=== PATIENT | male | born 1935 | race Caucasian/White ===

== ENCOUNTER 2017-04-26 06:34 | Inpatient (IN) | payer MEDICARE, OTHER ==
[2017-04-25 15:15] LABS: BASOPHILS % (AUTO) 0.6 % (0-1); EOSINOPHILS # (AUTO) 0.3 X10'3 (0-0.9); EOSINOPHILS % (AUTO) 4.1 % (0-6); LYMPHOCYTES # (AUTO) 2.6 X10'3 (1.1-4.8); LYMPHOCYTES % (AUTO) 30.9 % (21-51); MEAN CORPUSCULAR HEMOGLOBIN 31.7 PG (27.0-31.0); MEAN CORPUSCULAR HGB CONC 34.7 % (33.0-36.5); MEAN CORPUSCULAR VOLUME 91.3 FL (78-98); MEAN PLATELET VOLUME 7.9 FL (7.4-10.4); MONOCYTES # (AUTO) 0.9 X10'3 (0-0.9); MONOCYTES % (AUTO) 10.5 % (2-12); NEUTROPHILS # (AUTO) 4.5 X10'3 (1.8-7.7); NEUTROPHILS % (AUTO) 53.9 % (42-75); PRE OP HEMOGLOBIN 13.6 g/dL (14.0-17.9); PRE OP PLATELET COUNT 232 X10'3 (140-440); RED BLOOD COUNT 4.27 X10'6 (4.70-6.10); RED CELL DISTRIBUTION WIDTH 13.1 % (11.5-14.5)
[2017-04-25 15:23] LABS: PRE OP PROTIME 10.7 SECONDS (9.0-12.0)
[2017-04-25 15:38] LABS: ALBUMIN 3.9 G/DL (3.4-5.0); ALBUMIN/GLOBULIN RATIO 1.1 (1.1-1.5); ALKALINE PHOSPHATASE 75 IU/L (46-116); BLOOD UREA NITROGEN 21 MG/DL (7-18); BUN/CREATININE RATIO 18.9 (5.4-32.0); CALCIUM 9.1 MG/DL (8.5-10.1); CHLORIDE 108 MMOL/L (99-107); CREATININE 1.11 MG/DL (0.60-1.10); PRE OP ALT 39 U/L (30-65); PRE OP ANION GAP 10 (8-16); PRE OP AST 21 U/L (10-37); PRE OP BILIRUB, TOTAL 0.4 MG/DL (0.0-1.0); PRE OP GLUCOSE 99 MG/DL (70-104); PRE OP POTASSIUM 4.2 MMOL/L (3.4-5.1); PRE OP SODIUM 146 MMOL/L (135-145); TOTAL CARBON DIOXIDE 28.4 MMOL/L (24-32); TOTAL PROTEIN 7.3 G/DL (6.4-8.2); eGFR 64 ML/MIN
[2017-04-26] VITALS (17 sets, daily range): BP systolic 113–169; BP diastolic 63–104
[~2017-04-26] VITALS: Ht 170.2 cm; Wt 73.1 kg
[~2017-04-26 06:34] MED LIST: NO HOME MEDS; VANCOMYCIN INJ 1000 MG in NORMAL SALINE 250ml IV.SOLN IV ONE; cefazolin/dext.iso 2gm/50ml 50 ML IV ONE; famotidine 20mg tablet PO ONE; ringers solution, lacted 1,000 ML IV SCH; tranexamic acid inj. 1,000 MG in normal saline 100ml IV soln 90 ML IV ONE
[2017-04-26] MEDS ORDERED: LIDOcaine 1% (10mg/ml) 2ml vial ONE (07:02)
[2017-04-26] MEDS ORDERED: vancomycin 1,000mg inj ONE (07:15)
[2017-04-26] MEDS ORDERED: ROPIVAcaine 0.5% (5mg/ml) 30ml vial ONE ×2 (07:15→10:08)
[2017-04-26] MEDS ORDERED: ketorolac trometh. 30mg/ml inj. ONE (07:15)
[2017-04-26] MEDS ORDERED: tranexamic acid inj. 1,000 MG in normal saline 100ml IV soln 90 ML IV ONE (09:00)
[2017-04-26] MEDS ORDERED: tranexamic acid inj. 730 MG in normal saline 100ml IV soln 92.7 ML IV ONE ×4 (10:00)
[2017-04-26] MEDS ORDERED: cloNIDine hcl/PF 100mcg/ml inj ONE (10:08)
[2017-04-26] MEDS ORDERED: MIDAZolam 1mg/ml 10ml vial ONE (10:10)
[2017-04-26] MEDS ORDERED: MORPHINE SULFATE/PF 0.5 MG/ML 10ML AMPUL ONE (10:10)
[2017-04-26] MEDS ORDERED: fentaNYL/PF 50MCG/1 ML 2ML syringe ONE (10:11)
[2017-04-26] MEDS ORDERED: ePHEDrine 50MG/ML INJ. ONE (10:38)
[2017-04-26] MEDS ORDERED: ringers solution, lacted 1,000 ML IV SCH (11:01)
[2017-04-26] MEDS ORDERED: diphenhydrAMINE 50 mg/ml inj IV PRN (11:05)
[2017-04-26] MEDS ORDERED: hydrALAZINE 20mg/ml inj. IV PRN (11:05)
[2017-04-26] MEDS ORDERED: fentaNYL/PF 50MCG/1 ML 2ML syringe IV PRN ×2 (11:05)
[2017-04-26] MEDS ORDERED: ondansetron/PF 4mg/2ml inj IV PRN ×3 (11:05→12:50)
[2017-04-26] MEDS ORDERED: enalaprilat dihydrate 2.5mg/2ml vial IV PRN (11:05)
[2017-04-26] MEDS ORDERED: magnesium hydroxide 30ml (MOM) UD suspension PO PRN (12:50)
[2017-04-26] MEDS ORDERED: bisacodyl 10mg suppository rectal RC PRN (12:50)
[2017-04-26] MEDS ORDERED: acetaminophen 325mg tablet PO PRN (12:50)
[2017-04-26] MEDS ORDERED: diphenhydrAMINE 25mg capsule PO PRN ×2 (12:50)
[2017-04-26] MEDS ORDERED: HYDROmorphone 1 mg/ml syringe IV PRN ×2 (12:50)
[2017-04-26] MEDS: acetaminophen 325mg tablet PO SCH ×2 (14:23→19:38)
[2017-04-26] MEDS: gabapentin 300mg capsule PO SCH ×2 (14:23→21:34)
[2017-04-26] MEDS: ketorolac tromethamine 15mg/ml inj. IV SCH ×2 (14:26→19:37)
[2017-04-26] MEDS: potassium cl 20mEq in 1/2 NS 1,000 ML IV SCH ×2 (14:36→23:45)
[2017-04-26] MEDS ORDERED: tranexamic acid inj. 730 MG in normal saline 100ml IV soln 100 ML IV ONE (15:50)
[2017-04-26] MEDS: cefazolin 1gm/NS 100mL 100 ML IV SCH ×2 (16:21→23:41)
[2017-04-26] MEDS: celeCOXIB 100mg capsule PO SCH (19:38)
[2017-04-26] MEDS ORDERED: vancomycin/NS 1 GM ADD-VANTAGE 250 ML IV SCH (20:00)
[2017-04-26] MEDS: sennosides 8.6mg tablet PO SCH (21:34)
[2017-04-27 02:01] VITALS: BP 111/64
[2017-04-27] MEDS: ketorolac tromethamine 15mg/ml inj. IV SCH (02:06)
[2017-04-27] MEDS: acetaminophen 325mg tablet PO SCH ×4 (02:06→19:59)
[2017-04-27] MEDS: oxyCODONE IR 5mg (immed. release) tablet PO PRN ×2 (05:24→23:44)
[2017-04-27 06:00] VITALS: BP 111/62
[2017-04-27] MEDS: celeCOXIB 100mg capsule PO SCH ×2 (07:39→19:59)
[2017-04-27] MEDS: potassium cl 20mEq in 1/2 NS 1,000 ML IV SCH ×3 (07:39→19:55)
[2017-04-27] MEDS: gabapentin 300mg capsule PO SCH ×3 (07:39→19:59)
[2017-04-27] MEDS: aspirin 325mg tablet PO SCH (07:40)
[2017-04-27 07:47] LABS: BASOPHILS % (AUTO) 0.2 % (0-1); EOSINOPHILS # (AUTO) 0.2 X10'3 (0-0.9); EOSINOPHILS % (AUTO) 1.7 % (0-6); HEMATOCRIT 29.1 % (42.0-52.0); HEMOGLOBIN 9.7 g/dl (14.0-17.9); LYMPHOCYTES % (AUTO) 17.5 % (21-51); MEAN CORPUSCULAR HEMOGLOBIN 31.2 PG (27.0-31.0); MEAN CORPUSCULAR HGB CONC 33.4 % (33.0-36.5); MEAN CORPUSCULAR VOLUME 93.4 FL (78-98); MEAN PLATELET VOLUME 7.7 FL (7.4-10.4); MONOCYTES # (AUTO) 1.4 X10'3 (0-0.9); MONOCYTES % (AUTO) 11.9 % (2-12); NEUTROPHILS # (AUTO) 7.9 X10'3 (1.8-7.7); NEUTROPHILS % (AUTO) 68.7 % (42-75); PLATELET COUNT 184 X10'3 (140-440); RED BLOOD COUNT 3.12 X10'6 (4.70-6.10); RED CELL DISTRIBUTION WIDTH 14.4 % (11.5-14.5); WHITE BLOOD COUNT 11.5 X10'3 (4.5-11.0)
[2017-04-27 08:08] LABS: ANION GAP 8 (8-16); CHLORIDE 107 MMOL/L (99-107); POTASSIUM 4.4 MMOL/L (3.5-5.1); SODIUM 141 MMOL/L (135-145); TOTAL CARBON DIOXIDE 25.6 MMOL/L (24-32)
[2017-04-27 10:30] VITALS: BP 151/70
[2017-04-27 18:02] VITALS: BP 133/72
[2017-04-27] MEDS: pantoprazole 40mg Tablet.DR PO SCH (20:01)
[2017-04-27] MEDS: sennosides 8.6mg tablet PO SCH (21:00)
[2017-04-27 22:00] VITALS: BP 123/62
[2017-04-28] MEDS: acetaminophen 325mg tablet PO SCH ×2 (02:00→09:19)
[2017-04-28] MEDS: potassium cl 20mEq in 1/2 NS 1,000 ML IV SCH (04:46)
[2017-04-28 05:00] VITALS: BP 129/84
[2017-04-28] MEDS: oxyCODONE IR 5mg (immed. release) tablet PO PRN ×3 (05:45→13:29)
[2017-04-28 06:34] LABS: BASOPHILS % (AUTO) 0.2 % (0-1); EOSINOPHILS # (AUTO) 0.4 X10'3 (0-0.9); EOSINOPHILS % (AUTO) 4.1 % (0-6); HEMATOCRIT 27.1 % (42.0-52.0); HEMOGLOBIN 9.1 g/dl (14.0-17.9); LYMPHOCYTES # (AUTO) 1.6 X10'3 (1.1-4.8); MEAN CORPUSCULAR HEMOGLOBIN 31.3 PG (27.0-31.0); MEAN CORPUSCULAR HGB CONC 33.7 % (33.0-36.5); MEAN CORPUSCULAR VOLUME 92.8 FL (78-98); MEAN PLATELET VOLUME 7.6 FL (7.4-10.4); MONOCYTES # (AUTO) 1.3 X10'3 (0-0.9); MONOCYTES % (AUTO) 12.7 % (2-12); NEUTROPHILS # (AUTO) 7.1 X10'3 (1.8-7.7); PLATELET COUNT 150 X10'3 (140-440); RED BLOOD COUNT 2.92 X10'6 (4.70-6.10); RED CELL DISTRIBUTION WIDTH 14.1 % (11.5-14.5); WHITE BLOOD COUNT 10.5 X10'3 (4.5-11.0)
[2017-04-28] MEDS: celeCOXIB 100mg capsule PO SCH (09:18)
[2017-04-28] MEDS: pantoprazole 40mg Tablet.DR PO SCH (09:18)
[2017-04-28] MEDS: gabapentin 300mg capsule PO SCH ×2 (09:18→13:28)
[2017-04-28] MEDS: aspirin 325mg tablet PO SCH (09:19)
[2017-04-28 10:00] VITALS: BP 116/66
[2017-04-28] MEDS ORDERED: ASPI-1 PO (10:22)
[2017-04-28] MEDS ORDERED: WALKERFR (10:23)
== END 2017-04-28 15:10 | disposition home health service (06) | DRG 470 ==
LOC: PAS IN 06:34 → EDSTATUS 09:45 → ORTHO 4S 13:45 → EDSTATUS 14:00
PROVIDERS: ADMIT Orthopaedic Surgery; ATTEND Orthopaedic Surgery
PROC: 3E0T3BZ Introduction of Anesthetic Agent into Peripheral Nerves and Plexi, Percutaneous Approach (ICD-10-PCS; 2017-04-26)
PROC: 8E0YXBZ Computer Assisted Procedure of Lower Extremity (ICD-10-PCS; 2017-04-26)
PROC: 8E0YXCZ Robotic Assisted Procedure of Lower Extremity (ICD-10-PCS; 2017-04-26)
PROC: 0SRC0J9 Replacement of Right Knee Joint with Synthetic Substitute, Cemented, Open Approach (ICD-10-PCS; principal; 2017-04-26 10:05)
DX: M17.0 Bilateral primary osteoarthritis of knee (principal); D62 Acute posthemorrhagic anemia; F17.200 Nicotine dependence, unspecified, uncomplicated; Z72.89 Other problems related to lifestyle; Z79.82 Long term (current) use of aspirin; Z84.89 Family history of other specified conditions
CPT/HCPCS: 36415; 71046; 80051; 80053; 85025; 85610; 85730; 87070; 97110; 97116; 97161; A6449; A6455; A7000; C1713; C1758; C1776; J0690; J0735; J1170; J1885; J2250; J2274; J2405; J2795; J3010; J3370; J3490; J7120

== ENCOUNTER 2017-05-06 14:03 | Inpatient (IN) | payer MEDICARE, OTHER ==
[2017-05-06] VITALS (7 sets, daily range): BP systolic 132–166; BP diastolic 71–89
[~2017-05-06] VITALS: Ht 167.6 cm; Wt 75.0 kg
[~2017-05-06 14:03] MED LIST changes: +ASPI-1 PO; -VANCOMYCIN INJ 1000 MG in NORMAL SALINE 250ml IV.SOLN IV ONE; +WALKERFR; -cefazolin/dext.iso 2gm/50ml 50 ML IV ONE; -famotidine 20mg tablet PO ONE; -ringers solution, lacted 1,000 ML IV SCH; -tranexamic acid inj. 1,000 MG in normal saline 100ml IV soln 90 ML IV ONE
[2017-05-06] MEDS ORDERED: NAPR250T4 PO (15:24)
[2017-05-06 15:40] LABS: BASOPHILS # (AUTO) 0.1 X10'3 (0-0.2); BASOPHILS % (AUTO) 0.6 % (0-1); EOSINOPHILS # (AUTO) 0.1 X10'3 (0-0.9); EOSINOPHILS % (AUTO) 0.5 % (0-6); HEMATOCRIT 24.6 % (42.0-52.0); HEMOGLOBIN 8.2 g/dl (14.0-17.9); LYMPHOCYTES # (AUTO) 1.3 X10'3 (1.1-4.8); MEAN CORPUSCULAR HEMOGLOBIN 31.6 PG (27.0-31.0); MEAN CORPUSCULAR HGB CONC 33.3 % (33.0-36.5); MEAN PLATELET VOLUME 7.2 FL (7.4-10.4); MONOCYTES % (AUTO) 7.1 % (2-12); NEUTROPHILS # (AUTO) 12.1 X10'3 (1.8-7.7); NEUTROPHILS % (AUTO) 82.8 % (42-75); PLATELET COUNT 453 X10'3 (140-440); RED BLOOD COUNT 2.59 X10'6 (4.70-6.10); RED CELL DISTRIBUTION WIDTH 15.4 % (11.5-14.5); WHITE BLOOD COUNT 14.6 X10'3 (4.5-11.0)
[2017-05-06 15:50] LABS: ANISOCYTOSIS 1+; PLATELET ESTIMATE INCREASED; POLYCHROMASIA 1+; TOTAL CELLS COUNTED 100
[2017-05-06 15:59] LABS: ALANINE AMINOTRANSFERASE 44 U/L (12-78); ALBUMIN 2.9 G/DL (3.4-5.0); ALBUMIN/GLOBULIN RATIO 0.8 (1.1-1.5); ALKALINE PHOSPHATASE 83 IU/L (46-116); ANION GAP 14 (8-16); ASPARTATE AMINO TRANSFERASE 30 U/L (10-37); BILIRUBIN,TOTAL 0.6 MG/DL (0.1-1.0); BLOOD UREA NITROGEN 49 MG/DL (7-18); BUN/CREATININE RATIO 40.8 (5.4-32.0); CALCIUM 8.5 MG/DL (8.5-10.1); CHLORIDE 107 MMOL/L (99-107); GLUCOSE 123 MG/DL (70-104); POTASSIUM 3.7 MMOL/L (3.5-5.1); SODIUM 146 MMOL/L (135-145); TOTAL CARBON DIOXIDE 25.4 MMOL/L (24-32); TOTAL PROTEIN 6.6 G/DL (6.4-8.2); eGFR 58 ML/MIN
[2017-05-06 16:44] LABS: OCCULT BLOOD STOOL NEGATIVE (Neg)
[2017-05-06] MEDS ORDERED: levoFLOXACIN-Levaquin 500mg/D5 100 ML IV ONE (17:00)
[2017-05-06] MEDS ORDERED: furosemide 40mg/4ml inj IV ONE (17:00)
[2017-05-06] MEDS ORDERED: mag hydrox/Alum hydrox/simeth 30ml oral suspension PO PRN (17:25)
[2017-05-06] MEDS ORDERED: diphenhydrAMINE 50 mg/ml inj IV PRN (17:25)
[2017-05-06] MEDS ORDERED: ondansetron/PF 4mg/2ml inj IV PRN (17:25)
[2017-05-06] MEDS ORDERED: HYDROcodone/acetaminophen 10/325mg tab PO PRN (17:25)
[2017-05-06] MEDS ORDERED: acetaminophen 325mg tablet PO PRN (17:25)
[2017-05-06] MEDS ORDERED: diphenhydrAMINE 25mg capsule PO PRN (17:25)
[2017-05-06] MEDS ORDERED: magnesium hydroxide 30ml (MOM) UD suspension PO PRN (17:25)
[2017-05-06] MEDS: pantoprazole 40 MG vial IV SCH (20:24)
[2017-05-06] MEDS ORDERED: temazepam 15mg capsule PO PRN (21:00)
[2017-05-06] MEDS ORDERED: iohexol 350MG/ML 100ml bottle IV ONE (21:30)
[2017-05-07] VITALS (8 sets, daily range): BP systolic 122–185; BP diastolic 69–99
[2017-05-07 03:00] LABS: BASOPHILS % (AUTO) 0.4 % (0-1); EOSINOPHILS # (AUTO) 0.2 X10'3 (0-0.9); EOSINOPHILS % (AUTO) 1.9 % (0-6); HEMATOCRIT 30.4 % (42.0-52.0); HEMOGLOBIN 10.2 g/dl (14.0-17.9); LYMPHOCYTES # (AUTO) 1.7 X10'3 (1.1-4.8); LYMPHOCYTES % (AUTO) 13.4 % (21-51); MEAN CORPUSCULAR HEMOGLOBIN 31.1 PG (27.0-31.0); MEAN CORPUSCULAR HGB CONC 33.6 % (33.0-36.5); MEAN CORPUSCULAR VOLUME 92.3 FL (78-98); MEAN PLATELET VOLUME 7.1 FL (7.4-10.4); MONOCYTES % (AUTO) 7.6 % (2-12); NEUTROPHILS # (AUTO) 9.6 X10'3 (1.8-7.7); NEUTROPHILS % (AUTO) 76.7 % (42-75); PLATELET COUNT 398 X10'3 (140-440); WHITE BLOOD COUNT 12.5 X10'3 (4.5-11.0)
[2017-05-07] MEDS ORDERED: furosemide 20 MG/2 ML vial IV ONE (03:05)
[2017-05-07 03:23] LABS: ALBUMIN 2.7 G/DL (3.4-5.0); ANION GAP 13 (8-16); BLOOD UREA NITROGEN 38 MG/DL (7-18); BUN/CREATININE RATIO 34.5 (5.4-32.0); CALCIUM 8.2 MG/DL (8.5-10.1); CHLORIDE 108 MMOL/L (99-107); CHOL/HDL RATIO 3.6 (0.00-4.99); CHOLESTEROL 118 MG/DL (0-200); GLUCOSE 99 MG/DL (70-104); HDL CHOLESTEROL 33 MG/DL (35-60); LDL CHOLESTEROL 75 MG/DL (50-100); POTASSIUM 3.5 MMOL/L (3.5-5.1); SODIUM 147 MMOL/L (135-145); TOTAL CARBON DIOXIDE 25.6 MMOL/L (24-32); TRIGLYCERIDES 83 MG/DL (20-135); eGFR 64 ML/MIN
[2017-05-07] MEDS: lisinopril 5mg tablet PO SCH (07:57)
[2017-05-07] MEDS: furosemide 40mg/4ml inj IV SCH ×2 (07:58→19:16)
[2017-05-07] MEDS: aspirin 81mg tablet.DR PO SCH (07:58)
[2017-05-07] MEDS: pantoprazole 40 MG vial IV SCH ×2 (07:58→19:17)
[2017-05-07] MEDS ORDERED: potassium Cl oral solution 20 MEQ/15 ML PO ONE (17:15)
[2017-05-08 02:00] VITALS: BP 128/77
[2017-05-08 05:44] LABS: BASOPHILS % (AUTO) 0.3 % (0-1); EOSINOPHILS # (AUTO) 0.3 X10'3 (0-0.9); EOSINOPHILS % (AUTO) 2.6 % (0-6); HEMATOCRIT 35.5 % (42.0-52.0); HEMOGLOBIN 11.6 g/dl (14.0-17.9); LYMPHOCYTES # (AUTO) 1.5 X10'3 (1.1-4.8); LYMPHOCYTES % (AUTO) 12.6 % (21-51); MEAN CORPUSCULAR HEMOGLOBIN 30.9 PG (27.0-31.0); MEAN CORPUSCULAR HGB CONC 32.9 % (33.0-36.5); MEAN CORPUSCULAR VOLUME 93.9 FL (78-98); MEAN PLATELET VOLUME 7.3 FL (7.4-10.4); MONOCYTES # (AUTO) 1.1 X10'3 (0-0.9); MONOCYTES % (AUTO) 9.2 % (2-12); NEUTROPHILS % (AUTO) 75.3 % (42-75); PLATELET COUNT 447 X10'3 (140-440); RED BLOOD COUNT 3.78 X10'6 (4.70-6.10); RED CELL DISTRIBUTION WIDTH 16.3 % (11.5-14.5)
[2017-05-08 05:54] LABS: ALBUMIN 2.6 G/DL (3.4-5.0); ANION GAP 8 (8-16); BLOOD UREA NITROGEN 27 MG/DL (7-18); BUN/CREATININE RATIO 22.5 (5.4-32.0); CALCIUM 8.5 MG/DL (8.5-10.1); CHLORIDE 105 MMOL/L (99-107); GLUCOSE 106 MG/DL (70-104); POTASSIUM 3.6 MMOL/L (3.5-5.1); SODIUM 146 MMOL/L (135-145); TOTAL CARBON DIOXIDE 33.1 MMOL/L (24-32); eGFR 58 ML/MIN
[2017-05-08 06:00] VITALS: BP 137/81
[2017-05-08] MEDS: lisinopril 5mg tablet PO SCH (09:06)
[2017-05-08] MEDS: furosemide 40mg/4ml inj IV SCH ×2 (09:06→19:12)
[2017-05-08] MEDS: aspirin 81mg tablet.DR PO SCH (09:06)
[2017-05-08] MEDS: pantoprazole 40 MG vial IV SCH ×2 (09:06→19:12)
[2017-05-08] MEDS ORDERED: metoprolol tartrate 12.5mg (1/2 tablet) PO SCH (10:00)
[2017-05-08 11:00] VITALS: BP 124/70
[2017-05-08] MEDS: apixaban 5mg tablet PO SCH ×2 (12:58→19:12)
[2017-05-08 15:00] VITALS: BP_SYST 86; BP_SYST 89; BP_DIAS 46; BP_DIAS 50
[2017-05-08 19:00] VITALS: BP 111/64
[2017-05-08] MEDS: sotalol 80mg tablet PO SCH (19:12)
[2017-05-08 23:00] VITALS: BP 102/64
[2017-05-09 03:00] VITALS: BP 104/65
[2017-05-09 05:27] LABS: BASOPHILS % (AUTO) 0.3 % (0-1); EOSINOPHILS # (AUTO) 0.4 X10'3 (0-0.9); EOSINOPHILS % (AUTO) 3.2 % (0-6); HEMATOCRIT 41.1 % (42.0-52.0); HEMOGLOBIN 13.6 g/dl (14.0-17.9); LYMPHOCYTES # (AUTO) 1.8 X10'3 (1.1-4.8); LYMPHOCYTES % (AUTO) 14.3 % (21-51); MEAN CORPUSCULAR VOLUME 93.9 FL (78-98); MEAN PLATELET VOLUME 7.3 FL (7.4-10.4); MONOCYTES # (AUTO) 0.9 X10'3 (0-0.9); NEUTROPHILS # (AUTO) 9.7 X10'3 (1.8-7.7); NEUTROPHILS % (AUTO) 75.2 % (42-75); PLATELET COUNT 514 X10'3 (140-440); RED BLOOD COUNT 4.38 X10'6 (4.70-6.10); RED CELL DISTRIBUTION WIDTH 17.1 % (11.5-14.5)
[2017-05-09 05:54] LABS: ALBUMIN 2.7 G/DL (3.4-5.0); ANION GAP 10 (8-16); BLOOD UREA NITROGEN 38 MG/DL (7-18); CALCIUM 9.1 MG/DL (8.5-10.1); CHLORIDE 103 MMOL/L (99-107); GLUCOSE 128 MG/DL (70-104); POTASSIUM 4.3 MMOL/L (3.5-5.1); SODIUM 144 MMOL/L (135-145); TOTAL CARBON DIOXIDE 31.2 MMOL/L (24-32); eGFR 34 ML/MIN
[2017-05-09 06:00] VITALS: BP 117/78
[2017-05-09] MEDS: sotalol 80mg tablet PO SCH (09:17)
[2017-05-09] MEDS: pantoprazole 40 MG vial IV SCH ×2 (09:22→19:06)
[2017-05-09] MEDS: aspirin 81mg tablet.DR PO SCH (09:22)
[2017-05-09 11:00] VITALS: BP 116/64
[2017-05-09] MEDS: amiodarone 200mg tablet PO SCH ×2 (12:33→19:06)
[2017-05-09 15:00] VITALS: BP 105/53
[2017-05-09 19:00] VITALS: BP 105/51
[2017-05-09 23:00] VITALS: BP 109/70
[2017-05-10 03:00] VITALS: BP 121/68
[2017-05-10 05:42] LABS: BASOPHILS % (AUTO) 0.2 % (0-1); EOSINOPHILS # (AUTO) 0.6 X10'3 (0-0.9); EOSINOPHILS % (AUTO) 5.1 % (0-6); HEMATOCRIT 37.7 % (42.0-52.0); HEMOGLOBIN 12.6 g/dl (14.0-17.9); LYMPHOCYTES # (AUTO) 1.8 X10'3 (1.1-4.8); LYMPHOCYTES % (AUTO) 15.4 % (21-51); MEAN CORPUSCULAR HGB CONC 33.3 % (33.0-36.5); MEAN CORPUSCULAR VOLUME 93.2 FL (78-98); MEAN PLATELET VOLUME 7.2 FL (7.4-10.4); MONOCYTES % (AUTO) 8.6 % (2-12); NEUTROPHILS # (AUTO) 8.4 X10'3 (1.8-7.7); NEUTROPHILS % (AUTO) 70.7 % (42-75); PLATELET COUNT 465 X10'3 (140-440); RED BLOOD COUNT 4.05 X10'6 (4.70-6.10); RED CELL DISTRIBUTION WIDTH 17.3 % (11.5-14.5); WHITE BLOOD COUNT 11.9 X10'3 (4.5-11.0)
[2017-05-10 06:00] VITALS: BP 111/71
[2017-05-10 06:00] LABS: ALBUMIN 2.6 G/DL (3.4-5.0); ANION GAP 7 (8-16); BLOOD UREA NITROGEN 42 MG/DL (7-18); CALCIUM 8.8 MG/DL (8.5-10.1); CHLORIDE 104 MMOL/L (99-107); GLUCOSE 114 MG/DL (70-104); POTASSIUM 4.3 MMOL/L (3.5-5.1); SODIUM 142 MMOL/L (135-145); TOTAL CARBON DIOXIDE 31.2 MMOL/L (24-32); eGFR 49 ML/MIN
[2017-05-10] MEDS: pantoprazole 40 MG vial IV SCH (08:44)
[2017-05-10] MEDS: aspirin 81mg tablet.DR PO SCH (08:45)
[2017-05-10] MEDS: amiodarone 200mg tablet PO SCH (08:45)
[2017-05-10] MEDS ORDERED: AMOX-422 PO (10:45)
[2017-05-10] MEDS ORDERED: FURO-149 PO (10:45)
[2017-05-10] MEDS ORDERED: AMIO200T57 PO (10:45)
[2017-05-10] MEDS ORDERED: ASPI-1 PO (10:45)
[2017-05-10 11:00] VITALS: BP 108/57
[2017-05-10] MEDS ORDERED: ESOM40CA30 PO (12:27)
[2017-05-10] MEDS ORDERED: PANT-47 PO (13:07)
== END 2017-05-10 14:20 | disposition home health service (06) | DRG 377 ==
LOC: ER 14:04 → ED HOLD 17:23 → EDBEDREQ 18:18 → PCU 3S 19:50
PROVIDERS: ADMIT Hospitalist; ATTEND Internal Medicine
PROC: 30233N1 Transfusion of Nonautologous Red Blood Cells into Peripheral Vein, Percutaneous Approach (ICD-10-PCS; principal; 2017-05-06)
PROC: B32T1ZZ Computerized Tomography (CT Scan) of Left Pulmonary Artery using Low Osmolar Contrast (ICD-10-PCS; 2017-05-06)
PROC: B32S1ZZ Computerized Tomography (CT Scan) of Right Pulmonary Artery using Low Osmolar Contrast (ICD-10-PCS; 2017-05-06)
DX: K92.2 Gastrointestinal hemorrhage, unspecified (principal); J96.21 Acute and chronic respiratory failure with hypoxia; I21.4 Non-ST elevation (NSTEMI) myocardial infarction; J18.9 Pneumonia, unspecified organism; I50.31 Acute diastolic (congestive) heart failure; J91.8 Pleural effusion in other conditions classified elsewhere; I48.91 Unspecified atrial fibrillation; I27.20 Pulmonary hypertension, unspecified; D62 Acute posthemorrhagic anemia; F17.210 Nicotine dependence, cigarettes, uncomplicated; Z96.651 Presence of right artificial knee joint; Z79.82 Long term (current) use of aspirin; Z98.42 Cataract extraction status, left eye; Z98.41 Cataract extraction status, right eye; Z82.0 Family history of epilepsy and other diseases of the nervous system
CPT/HCPCS: 36415; 36430; 71046; 71275; 80048; 80053; 80061; 82272; 83605; 83880; 84484; 85025; 86885; 86900; 86901; 86920; 87040; 87070; 93005; 93306; 96374; 97110; 97116; 97162; 99285; C9113; J1940; J1956; J7030; P9016; Q9967